=== PATIENT | male | born 1945 | race Hispanic/Latino ===

== ENCOUNTER 2020-03-24 21:54 | Inpatient (IN) | payer OTHER ==
[~2020-03-24] VITALS: Ht 172.7 cm; Wt 99.8 kg
[2020-03-24 22:24] LABS: BASOPHILS % (AUTO) 0.2 % (0.0-5.0); EOSINOPHILS % (AUTO) 0.1 % (0.0-8.0); HEMATOCRIT 34.4 % (42-54); LYMPHOCYTES % (AUTO) 8.1 % (21.0-51.0); MEAN CORPUSCULAR HEMOGLOBIN 28.2 pg (27.0-33.0); MEAN CORPUSCULAR VOLUME 82.9 fL (79-99); MONOCYTES % (AUTO) 6.5 % (3.0-13.0); NEUTROPHILS % (AUTO) 84.7 % (40.0-77.0); PLATELET COUNT (AUTO) 232 K/uL (130-400); RED BLOOD CELL COUNT(AUTO) 4.15 MIL/uL (4.50-6.20); WHITE BLOOD COUNT (AUTO) 11.6 K/uL (4.8-10.8)
[2020-03-24 22:39] LABS: INR 1.05 (0.85-1.15); PARTIAL THROMBOPLASTIN TIME 30.4 SEC (26.3-35.5); PROTHROMBIN TIME 11.3 SEC (9.6-11.6)
[2020-03-24 22:43] LABS: ALBUMIN 3.3 g/dL (3.5-5.0); BILIRUBIN,TOTAL 0.3 mg/dL (0.2-1.0); TOTAL PROTEIN, SERUM 8.3 g/dL (6.0-8.3)
[2020-03-24 22:49] LABS: CREATININE 11.9 mg/dL (0.5-1.5); POTASSIUM 7.5 mmol/L (3.5-5.1)
[2020-03-24] MEDS ORDERED: SODIUM CHLORIDE 0.9% 1000ML 1,000 ML IV SCH (23:47)
[2020-03-25] MEDS ORDERED: LEVOFLOXACIN 500 MG/D5W 100 ML 100 ML IV SCH
[2020-03-25] MEDS ORDERED: ONDANSETRON HCL 4 MG/2 ML VIAL IV PRN
[2020-03-25] MEDS ORDERED: MORPHINE SULFATE 2 MG/ML 1ML SYG IV PRN
[2020-03-25] MEDS ORDERED: ACETAMINOPHEN 325 MG TAB PO PRN ×2
[2020-03-25] MEDS ORDERED: LACTULOSE 20 GM/30 ML UDCUP PO PRN
[2020-03-25] MEDS ORDERED: INSULIN HUMULIN R 100 UNIT/ML 3ML SQ SCH
[2020-03-25] MEDS ORDERED: LIDOCAINE HCL 1% 20 ML VIAL ONE (00:03)
[2020-03-25] MEDS ORDERED: DEXTROSE 50%-WATER 50 ML DISP.SYRIN IV ONE (00:16)
[2020-03-25] MEDS ORDERED: CALCIUM GLUCONATE 1 GM/10 ML VIAL IV ONE (00:16)
[2020-03-25] MEDS ORDERED: SODIUM POLYSTYRENE SULFONATE 15 GM/60 ML ML ONE ×2 (00:16→06:38)
[2020-03-25] MEDS ORDERED: INSULIN HUMULIN R 100 UNIT/ML 3ML ONE (00:17)
[2020-03-25] MEDS ORDERED: HYDRALAZINE HCL 20 MG/ML VIAL IV PRN (00:30)
[2020-03-25 00:39] LABS: CHOLESTEROL 205 mg/dL (<200); HDL CHOLESTEROL 102 mg/dL (29-71); LDL DIRECT 135 mg/dL (0-99); TRIGLYCERIDES 116 mg/dL (30-200)
[2020-03-25 00:43] LABS: HEMOGLOBIN A1C 11.1 % (4.0-6.0)
[2020-03-25] MEDS ORDERED: LEVOFLOXACIN 500 MG/D5W 100 ML 100 ML ONE (01:43)
[2020-03-25 04:44] LABS: BASOPHILS % (AUTO) 0.1 % (0.0-5.0); EOSINOPHILS % (AUTO) 0.1 % (0.0-8.0); HEMATOCRIT 35.1 % (42-54); LYMPHOCYTES % (AUTO) 6.7 % (21.0-51.0); MEAN CORPUSCULAR HEMOGLOBIN 28.2 pg (27.0-33.0); MEAN CORPUSCULAR HGB CONC 32.5 g/dL (32.0-36.0); MEAN CORPUSCULAR VOLUME 86.9 fL (79-99); MONOCYTES % (AUTO) 4.1 % (3.0-13.0); NEUTROPHILS % (AUTO) 88.4 % (40.0-77.0); PLATELET COUNT (AUTO) 245 K/uL (130-400); RED BLOOD CELL COUNT(AUTO) 4.04 MIL/uL (4.50-6.20); RED CELL DISTRIBUTION WIDTH 13.3 % (11.0-15.5); WHITE BLOOD COUNT (AUTO) 14.9 K/uL (4.8-10.8)
[2020-03-25 04:56] LABS: APPEARANCE,URINE Cloudy (CLEAR); BILIRUBIN,URINE Negative (NEGATIVE); COLOR,URINE Yellow (YELLOW); GLUCOSE, URINE (UA) TRACE mg/dL (NEGATIVE); KETONES,URINE Negative (NEGATIVE); LEUKOCYTE ESTERASE ,URINE Small (NEGATIVE); NITRATE,URINE Negative (NEGATIVE); OCCULT BLOOD,URINE Small (NEGATIVE); PROTEIN,URINE POS 2+ mg/dL (NEGATIVE); UROBILINOGEN,URINE 0.2 mg/dL (0.2-1.0)
[2020-03-25 05:06] LABS: POTASSIUM 8.4 mmol/L (3.5-5.1)
[2020-03-25 05:07] LABS: CREATININE 12.5 mg/dL (0.5-1.5)
[2020-03-25 05:26] LABS: BACTERIA,URINE Few /HPF (None Seen); MUCUS,URINE Moderate LPF (None Seen); SQUAMOUS EPITHELIAL CELL,UR Moderate /HPF (0-2)
[2020-03-25] MEDS ORDERED: LACTULOSE 20 GM/30 ML UDCUP ONE (06:37)
[2020-03-25] MEDS ORDERED: SODIUM POLYSTYRENE SULFONATE 15 GM/60 ML ML PO SCH (07:52)
[2020-03-25] MEDS ORDERED: DiphenhydrAMINE HCL 50 MG/ML VIAL ONE (08:02)
[2020-03-25] MEDS ORDERED: GLYCOPYRROLATE 1 MG/5 ML SYRINGE IV PRN (08:45)
[2020-03-25] MEDS ORDERED: LORAZEPAM 2 MG/ML 1 ML VIAL IM PRN (08:45)
[2020-03-25] MEDS ORDERED: HYDROMORPHONE 1 MG/1 ML AMP IVP PRN (08:45)
[2020-03-25] MEDS ORDERED: CEFTRIAXONE SODIUM 1 GM IVP SCH (08:45)
[2020-03-25 08:52] LABS: CREATININE,URINE RANDOM 88 mg/dL (30-135); SODIUM,URINE RANDOM 52 mmol/l (40-220)
[2020-03-25] MEDS ORDERED: ENOXAPARIN SODIUM 30 MG/0.3 ML SQ SCH (09:00)
[2020-03-25] MEDS ORDERED: ASPIRIN 81MG TAB.CHEW PO SCH (09:00)
[2020-03-25] MEDS ORDERED: FAMOTIDINE/PF 20 MG/2 ML VIAL IV SCH (09:00)
[2020-03-25] MEDS ORDERED: METOPROLOL TARTRATE 25 MG TAB PO SCH (09:00)
[2020-03-25 09:05] LABS: MAGNESIUM 3.2 mg/dL (1.80-2.40); PHOSPHORUS 13.2 mg/dL (2.5-4.9)
--- NOTE | 2020-03-25 13:27 | NUR ---
CM NOTE/ UNABLE TO COMPLETED IA, PATIENT . Addendum: 03/25/20 at 1328 by DEAN TRIANA RN CM Amended: Links added.
[2020-03-25] MEDS ORDERED: ATORVASTATIN CALCIUM 20 MG TABLET PO SCH (21:00)
== END 2020-03-25 12:41 | disposition expired | DRG 177 ==
LOC: EDH 21:54 → EDBD 21:55 → EDHIP 21:55
PROVIDERS: ADMIT Internal Medicine; ATTEND Internal Medicine
DX: J69.0 Pneumonitis due to inhalation of food and vomit (principal); G92 Toxic encephalopathy; N17.9 Acute kidney failure, unspecified; E87.2 Acidosis; J44.0 Chronic obstructive pulmonary disease with (acute) lower respiratory infection; E87.5 Hyperkalemia; F32.9 Major depressive disorder, single episode, unspecified; K21.9 Gastro-esophageal reflux disease without esophagitis; G30.9 Alzheimer's disease, unspecified; N40.0 Benign prostatic hyperplasia without lower urinary tract symptoms; E78.5 Hyperlipidemia, unspecified; K76.0 Fatty (change of) liver, not elsewhere classified; I71.4 Abdominal aortic aneurysm, without rupture; F02.80 Dementia in other diseases classified elsewhere, unspecified severity, without behavioral disturbance, psychotic disturbance, mood disturbance, and anxiety; N18.9 Chronic kidney disease, unspecified; I13.10 Hypertensive heart and chronic kidney disease without heart failure, with stage 1 through stage 4 chronic kidney disease, or unspecified chronic kidney disease; E11.22 Type 2 diabetes mellitus with diabetic chronic kidney disease; E78.00 Pure hypercholesterolemia, unspecified; E86.9 Volume depletion, unspecified; Z66 Do not resuscitate; I46.9 Cardiac arrest, cause unspecified; Z51.5 Encounter for palliative care; Z88.0 Allergy status to penicillin; Z03.818 Encounter for observation for suspected exposure to other biological agents ruled out; R07.89 Other chest pain
CPT/HCPCS: 36415; 71045; 71250; 74176; 80048; 80053; 80061; 81001; 82550; 82570; 83036; 83735; 84100; 84300; 84484; 85025; 85378; 85610; 85730; 86140; 87040; 87088; 87486; 87581; 87633; 87635; 87798; 93005; G0378; J0610; J1200; J1815; J1956; J7070